=== PATIENT | female | born 1980 | race Hispanic/Latino ===

== ENCOUNTER 2021-08-08 23:26 | Emergency (ER) | payer OTHER ==
[~2021-08-08] VITALS: Ht 152.4 cm; Wt 86.2 kg
[2021-08-08 23:28] VITALS: BP 115/82
== END 2021-08-09 00:56 | disposition left against medical advice (07) ==
LOC: EDH 23:26
DX: R07.89 Other chest pain (principal); Z53.21 Procedure and treatment not carried out due to patient leaving prior to being seen by health care provider
CPT/HCPCS: 84484; 93005